=== PATIENT | male | born 1995 ===

== ENCOUNTER 2024-07-08 08:48 | Emergency (ER) | payer BC, OTHER, SELFPAY ==
[2024-07-08] MEDS ORDERED: Dexamethasone 10 MG/ML VIAL ONE (10:09)
== END 2024-07-08 11:08 | disposition home or self-care (01) ==
LOC: ERS 08:48
DX: J02.9 Acute pharyngitis, unspecified (principal); B97.89 Other viral agents as the cause of diseases classified elsewhere; Z87.891 Personal history of nicotine dependence
CPT/HCPCS: 87081; 87428; 87430; J1100